=== PATIENT | male | born 1955 | race African-American/Black ===

== ENCOUNTER 2020-07-28 03:51 | Emergency (ER) | payer OTHER ==
[~2020-07-28] VITALS: Ht 182.9 cm; Wt 79.4 kg
[2020-07-28 04:38] LABS: ABSOLUTE NEUTROPHILS 4.4 thou/uL (1.4-8.2); BASOPHILS 0.5 % (0.0-2.0); EOSINOPHILS 3.1 % (0.0-3.0); HEMATOCRIT 40.8 % (42.0-52.0); HEMOGLOBIN 13.4 gm/dL (14.0-18.0); LYMPHOCYTES 35.3 % (24.0-44.0); MCH 30.4 pg (26.0-34.0); MCHC 32.9 g/dL (28.0-37.0); MCV 92.3 fL (80.0-100.0); PLATELET COUNT 322 thou/uL (150-400); POLYS 52.1 % (36.0-66.0); RBC 4.42 mil/uL (4.50-6.00); RDW 13.4 % (10.5-14.5); WBC 8.4 thou/uL (4.0-11.0)
[2020-07-28 04:40] LABS: CALCIUM 8.4 mg/dL (8.5-10.1); CREATININE 1.4 mg/dL (0.7-1.3); POTASSIUM 3.3 mmol/L (3.5-5.1)
[2020-07-28 04:47] LABS: ALBUMIN 3.7 g/dL (3.4-5.0); TOTAL BILIRUBIN 0.4 mg/dL (0.2-1.0); TOTAL PROTEIN 7.3 g/dL (6.4-8.2)
[2020-07-28 05:11] LABS: URINE BILIRUBIN NEGATIVE (Negative); URINE BLOOD 1+ (Negative); URINE CLARITY CLEAR; URINE COLOR YELLOW; URINE GLUCOSE-RANDOM* NEGATIVE (Negative); URINE KETONES NEGATIVE (Negative); URINE LEUKOCYTES-REFLEX NEGATIVE (Negative); URINE NITRITE-REFLEX NEGATIVE (Negative); URINE PROTEIN (DIPSTICK) NEGATIVE (Negative); URINE SPECIFIC GRAVITY >= 1.030 (1.005-1.035); URINE UROBILINOGEN 0.2 E.U./dl (0.2-1.0)
[2020-07-28] MEDS ORDERED: LEVETIRACETAM500 M1 PO (05:18)
[2020-07-28 05:19] LABS: AMP/METHAMP Negative (Negative); BARBITURATES Negative (Negative); BENZODIAZEPINES Negative (Negative); COCAINE Negative (Negative); METHADONE Negative (Negative); OPIATES Negative (Negative); PCP Negative (Negative)
[2020-07-28 05:20] LABS: BACTERIA-REFLEX None Seen /HPF (None Seen); CASTS None Seen /LPF (None Seen); CRYSTALS None Seen /LPF (None Seen); MUCUS None Seen strn/LPF (None Seen); SQUAMOUS None Seen /LPF (0-3); URINE RBC None Seen /HPF (NONE SEEN); URINE WBC-REFLEX None Seen /HPF (0-5)
[2020-07-28 06:46] VITALS: BP 148/77
--- NOTE | 2020-07-29 07:05 | EKG ---
[address] [address] [place] [address] ELECTROCARDIOGRAM REPORT Name: HEIDI WILLS Room #: DEP CINDY Nichols#: [id number] Admission: 07/28/20 Attend Phys: Discharge: 07/28/20 Date of : 57 Report #: [id number] [facility] ED Test Date: 2020-07-28 Test Time: 04:05:27 Pat Name: HEIDI WILLS Department: Room: Gender: M [employer] Work[employer]: enedelia : 1955 Requested By: Lucila Nash Order Number: [id number] MD: Rei Sykes Measurements Intervals U[place]i Rate: 69 P: 44 [place]: 165 QRS: 1 QRSD: 113 T: 30 QT: 406 QTc: 435 Interpretive Statements Sinus rhythm RSR' in V1 or V2, probably normal variant Probable left ventricular hypertrophy No previous ECG available for comparison Electronically Signed On 07-29-2020 7:05:52 CDT by Rei Sykes [email or web address] <ELECTRONICALLY SIGNED> By: Rei Sykes MD, [facility] 07/29/20 0705 [id number] Rei Sykes MD, FACC /EPI
== END 2020-07-28 06:50 | disposition home or self-care (01) ==
LOC: ER 03:51
PROVIDERS: Emergency Medicine
DX: R56.9 Unspecified convulsions (principal); R94.6 Abnormal results of thyroid function studies